=== PATIENT | female | born 1975 | race Caucasian/White ===

== ENCOUNTER 2016-10-03 18:31 | Emergency (ER) | payer MEDICAID, OTHER ==
[~2016-10-03] VITALS: Ht 162.6 cm; Wt 72.6 kg
[2016-10-03 18:59] VITALS: BP 124/79
--- NOTE | 2016-10-03 21:01 | NUR ---
PATIENT PRESENTS TO ED WITH C/O VOMIT X 6 DAYS AND SHARP VAGINAL PAIN X 2 DAYS WITH NO BLEEDING. PT DENIES N/D; SKIN IS PINK/WARM/DRY; AAOX4 WITH EVEN AND STEADY GAIT; LUNGS CLEAR BL; HR EVEN AND REGULAR; PT DENIES ANY FEVER, CP, SOB, OR COUGH AT THIS TIME; PATIENT STATES PAIN OF 7/10 AT THIS TIME; VSS; PATIENT POSITIONED FOR COMFORT; HOB ELEVATED; BEDRAILS UP X2; BED DOWN. ER MD MADE AWARE OF PT STATUS.
--- NOTE | 2016-10-03 21:01 | NUR ---
TO ER BED 6
--- NOTE | 2016-10-03 22:21 | NUR ---
Patient being evaluated by physician DR AMBROSE at bedside.
[2016-10-03] MEDS ORDERED: ONDANSETRON 4 MG/2 ML VIAL IVP ONE (22:25)
[2016-10-03] MEDS ORDERED: NACL 0.9% 1,000 ML IV ONE (22:25)
[2016-10-03 23:13] LABS: RED BLOOD CELL COUNT(AUTO) 4.24 MIL/uL (4.20-5.40); WHITE BLOOD COUNT (AUTO) 7.8 K/uL (4.8-10.8)
[2016-10-03 23:14] LABS: HEMATOCRIT 37.1 % (36-48); HEMOGLOBIN 12.3 g/dL (12.0-16.0)
[2016-10-03 23:15] LABS: MEAN CORPUSCULAR HEMOGLOBIN 29 pg (27-31); MEAN CORPUSCULAR HGB CONC 33 g/dL (33-37); MEAN CORPUSCULAR VOLUME 88 fL (80-94); PLATELET COUNT (AUTO) 239 K/uL (140-450); RED CELL DISTRIBUTION WIDTH 12.4 % (11.6-13.7)
[2016-10-03 23:16] LABS: BASOPHILS # (AUTO) 0.2 K/uL (0.00-0.22); BASOPHILS % (AUTO) 2.2 % (0.0-2.0); EOSINOPHILS # (AUTO) 0.2 K/uL (0-0.4); EOSINOPHILS % (AUTO) 2.4 % (0.0-4.0); LYMPHOCYTES # (AUTO) 1.8 K/uL (2.5-16.5); LYMPHOCYTES % (AUTO) 23.7 % (20.5-51.1); MONOCYTES # (AUTO) 0.5 K/uL (0.8-1.0); MONOCYTES % (AUTO) 6.1 % (1.7-9.3); NEUTROPHILS # (AUTO) 5.1 K/uL (1.8-7.7); NEUTROPHILS % (AUTO) 65.6 % (42.2-75.2)
[2016-10-03 23:21] LABS: ANION GAP 9.5 (8-16); CALCIUM 8.1 mg/dL (8.5-10.1); CARBON DIOXIDE 28.7 mmol/L (21-32); CREATININE 0.8 mg/dL (0.6-1.3); POTASSIUM 3.2 mmol/L (3.5-5.1)
[2016-10-03 23:28] LABS: ALBUMIN 3.3 g/dL (3.4-5.0); TOTAL BILIRUBIN 0.6 mg/dL (0.0-1.0); TOTAL PROTEIN, SERUM 6.3 g/dL (6.4-8.2)
--- NOTE | 2016-10-03 23:55 | NUR ---
IV removed, catheter intact and site benign. Applied folded 4x4 gauze and tape to stop bleeding.
[2016-10-04 00:10] VITALS: BP 145/76
--- NOTE | 2016-10-04 00:10 | NUR ---
Patient discharged with v/s stable. Written and verbal after care instructions given and explained. Patient alert, oriented and verbalized understanding of instructions. Ambulatory with steady gait. All questions addressed prior to discharge. ID band removed. Patient advised to follow up with PMD. Rx of Motrin and Zofran given. Patient educated on indication of medication including possible reaction and side effects. Opportunity to ask questions provided and answered.
== END 2016-10-04 00:10 | disposition home or self-care (01) ==
LOC: MED 18:31
DX: N83.202 Unspecified ovarian cyst, left side (principal); R03.0 Elevated blood-pressure reading, without diagnosis of hypertension; F17.200 Nicotine dependence, unspecified, uncomplicated
CPT/HCPCS: 36415; 76830; 76856; 80053; 81002; 81025; 83690; 85025; 96361; 96374; 99285; J2405; J7030

== ENCOUNTER 2016-11-04 02:21 | Emergency (ER) | payer OTHER ==
[~2016-11-04] VITALS: Ht 162.6 cm; Wt 76.2 kg
[2016-11-04 02:27] VITALS: BP 144/94
--- NOTE | 2016-11-04 02:47 | NUR ---
PATIENT AMBULATED TO ER BED 4.
--- NOTE | 2016-11-04 03:00 | NUR ---
PATIENT BEING EVALUATED BY DR. AMBROSE.
[2016-11-04] MEDS ORDERED: NACL 0.9% 500 ML IV ONE ×2 (03:02)
[2016-11-04] MEDS ORDERED: ONDANSETRON 4 MG/2 ML VIAL IVP ONE (03:05)
[2016-11-04] MEDS ORDERED: KETOROLAC 30 MG/ML VIAL IVP ONE (03:05)
[2016-11-04 05:38] VITALS: BP 139/88
--- NOTE | 2016-11-04 05:40 | NUR ---
Patient discharged with v/s stable. Written and verbal after care instructions given and explained. Patient alert, oriented and verbalized understanding of instructions. Ambulatory with steady gait. All questions addressed prior to discharge. ID band removed. Patient advised to follow up with PMD. Rx of MOTRIN 800MG PO, TRAMADOL HYDROCHLORIDE 50MG PO given. Patient educated on indication of medication including possible reaction and side effects. Opportunity to ask questions provided and answered.
== END 2016-11-04 05:40 | disposition home or self-care (01) ==
LOC: MED 02:21
DX: N20.0 Calculus of kidney (principal); R03.0 Elevated blood-pressure reading, without diagnosis of hypertension
CPT/HCPCS: 74176; 81002; 81025; 96361; 96374; 96375; 99284; J1885; J2405; J7030